=== PATIENT | female | born 1990 | race Caucasian/White ===

== ENCOUNTER 2021-11-25 16:43 | Inpatient (IN) ==
[2021-11-25 16:25] LABS: Basophils % 0.1 %; Eosinophils # 0.1 K/mcL (0.0-0.6); Eosinophils % 0.5 %; Hematocrit 40.6 % (35.3-44.9); Hemoglobin 13.7 g/dL (11.5-15.4); Immature Granulocytes % 0.4 % (0-4); Lymphocytes # 1.8 K/mcL (0.6-4.6); Mean Corpuscular HGB Conc 33.7 g/dL (31.6-35.5); Mean Platelet Volume 10.1 fL (9.4-12.4); Monocytes # 0.5 K/mcL (0.0-1.3); Monocytes % 5.1 %; Neutrophils # 7.7 K/mcL (1.6-8.9); Platelet Count 245 K/mcL (140-400); Red Blood Count 4.56 M/mcL (3.82-4.97); Red Cell Distribution Width 13.1 % (11.5-14.5); Segmented Neutrophils % 75.9 %; White Blood Count 10.2 K/mcL (4.3-11.1)
[2021-11-25 16:27] LABS: VBG HCO3 20 mEq/L (21-27); VBG PCO2 32 mmHg (41-51); VBG PH 7.41 pH Units (7.32-7.42); VBG PO2 139 mmHg (25-50)
[~2021-11-25 16:43] MED LIST: *HR* Labetalol 20 MG/4 ML SYRINGE IVP ONE; *HR* Labetalol 20 MG/4 ML SYRINGE IVP PRN; Calcium Gluconate 1,000 MG/10 ML VIAL IVP PRN; Magnesium Sulf 20 gm/SW 500mL 20 GM/500 ML IV.SOLN IVC SCH; Magnesium Sulf 20 gm/SW 500mL 4 GM/100 ML BAG IV ONE; Ringers Solution, Lactated 1,000 ML ONE
[2021-11-25] MEDS ORDERED: Isovue-370 500 ML BOTTLE IVP ONE (16:59)
[2021-11-25 17:04] LABS: Alanine Aminotransferase 12 Units/L (7-52); Aspartate Amino Transferase 15 Units/L (13-39); BUN/Creatinine Ratio 9 (6-26); Blood Urea Nitrogen 5 mg/dL (6-20); Calcium 9.1 mg/dL (8.6-10.3); Carbon Dioxide 19 mEq/L (23-29); Chloride 106 mEq/L (98-107); Glucose 71 mg/dL (70-105); Lactate Dehydrogenase 161 Units/L (140-271); Magnesium 1.8 mg/dL (1.6-2.6); Osmolality,Calculated 278 (280-300); Phosphorous 4.1 mg/dL (2.7-4.5); Potassium 3.7 mEq/L (3.5-5.1); Sodium 136 mEq/L (136-145); Uric Acid 4.2 mg/dL (2.3-7.6); eGFR For African Americans > 60 (> 60); eGFR For Non-African Americans > 60 (> 60)
[2021-11-25 17:45] LABS: Prothrombin Time 11.1 Seconds (9.4-12.1)
[2021-11-25 17:46] LABS: Activated Partial Thrombo Time 29.8 Seconds (26.0-36.0)
[2021-11-25 17:50] LABS: Creatinine,Urine 31 mg/dL; Protein/Creatinine Ratio,Urine 0.16 mg/mg (0.00-0.20)
[2021-11-25] MEDS ORDERED: CeFAZolin Syr 3,000MG/30 ML 3,000 MG/30 ML SYRINGE IVPB ONE (17:58)
[2021-11-25] MEDS ORDERED: Metoclopramide 10 MG/2 ML VIAL IVP ONE (17:58)
[2021-11-25] MEDS ORDERED: Famotidine 20 MG/2 ML VIAL IVP ONE (17:58)
[2021-11-25] MEDS ORDERED: Oxytocin 30 UNIT/503 ML BAG IVC SCH ×2 (18:00→22:41)
[2021-11-25] MEDS ORDERED: Ringers Solution, Lactated 1,000 ML IVC SCH ×2 (18:00→22:41)
[2021-11-25] MEDS ORDERED: *HR* FentaNYL (PF) 100 MCG/2 ML VIAL ONE (18:49)
[2021-11-25] MEDS ORDERED: Ondansetron 4 MG/2 ML VIAL ONE (18:49)
[2021-11-25] MEDS ORDERED: *HR* Morphine Sulfate/PF 10 MG/10 ML AMPUL ONE (18:49)
[2021-11-25 18:53] LABS: Amphetamine Screen,Urine Negative ng/mL (Cutoff=1000); Barbiturate Screen,Urine Negative ng/mL (Cutoff=200); Benzodiazepines Screen,Urine Negative ng/mL (Cutoff=200); Cannabinoid Screen,Urine Negative ng/mL (Cutoff = 50); Cocaine Screen,Urine Negative ng/mL (Cutoff= 300); Opiate Screen,Urine Negative ng/mL (Cutoff=300); Phencyclidine Screen,Urine Negative ng/mL (Cutoff=25)
[2021-11-25 18:56] LABS: Adenovirus Not Detected (Not Detect); Bordetella Pertussis Not Detected (Not Detect); Chlamydophila pneumoniae Not Detected (Not Detect); Coronavirus 229E Not Detected (Not Detect); Coronavirus HKU1 Not Detected (Not Detect); Coronavirus NL63 Not Detected (Not Detect); Coronavirus OC43 Not Detected (Not Detect); Human Metapneumovirus Not Detected (Not Detect); Human Rhinovirus/Enterovirus Not Detected (Not Detect); Influenza A Subtype 2009 H1 Not Detected (Not Detect); Influenza B Not Detected (Not Detect); Mycoplasma pneumoniae Not Detected (Not Detect); Parainfluenza Virus 1 Not Detected (Not Detect); Parainfluenza Virus 2 Not Detected (Not Detect); Parainfluenza Virus 3 Not Detected (Not Detect); Parainfluenza Virus 4 Not Detected (Not Detect); Respiratory Syncytial Virus Not Detected (Not Detect); SARS-CoV-2 Not Detected (Not Detect)
[2021-11-25] MEDS ORDERED: Acetaminophen IV 1,000 MG/100 ML BAG IVPB ONE (20:23)
[2021-11-25] MEDS ORDERED: EPHEDrine 50 MG/ML VIAL ONE (20:36)
[2021-11-25] MEDS ORDERED: Ketorolac 30 MG/ML VIAL ONE (21:04)
[2021-11-25] MEDS ORDERED: Metoclopramide 10 MG/2 ML VIAL IVP PRN (22:41)
[2021-11-25] MEDS ORDERED: *HR* OxyCODONE Immed Rel 5 MG TABLET PO PRN (22:41)
[2021-11-25] MEDS ORDERED: Simethicone 80 MG TAB.CHEW PO PRN (22:41)
[2021-11-25] MEDS ORDERED: Ondansetron 4 MG/2 ML VIAL IVP PRN (22:41)
[2021-11-26] MEDS: Acetaminophen 325 MG TABLET PO SCH ×4 (02:10→20:14)
[2021-11-26] MEDS: Ibuprofen 600 MG TABLET PO SCH ×5 (02:11→20:14)
[2021-11-26 04:38] LABS: Basophils % 0.1 %; Eosinophils % 0.2 %; Hematocrit 32.1 % (35.3-44.9); Immature Granulocytes % 0.4 % (0-4); Lymphocytes % 14.7 %; Mean Corpuscular Hemoglobin 30.3 pg (28.0-33.3); Mean Corpuscular Volume 91.7 fL (83.0-100.0); Mean Platelet Volume 10.1 fL (9.4-12.4); Monocytes # 0.7 K/mcL (0.0-1.3); Monocytes % 5.3 %; Platelet Count 205 K/mcL (140-400); Red Cell Distribution Width 13.2 % (11.5-14.5); Segmented Neutrophils % 79.3 %; White Blood Count 13.9 K/mcL (4.3-11.1)
[2021-11-26 04:48] LABS: Hemoglobin 10.6 g/dL (11.5-15.4)
[2021-11-26] MEDS: *HR* Enoxaparin 60 MG/0.6 ML SYRINGE SQ SCH ×2 (08:08→20:14)
[2021-11-26] MEDS: Prenatal Vit/FA 1 EACH TABLET PO SCH (08:08)
[2021-11-26] MEDS: Acyclovir 200 MG CAPSULE PO SCH ×2 (08:30→20:14)
[2021-11-26] MEDS: predniSONE 20 MG TABLET PO SCH ×2 (08:30→17:48)
[2021-11-26] MEDS: Lanolin 7 G OINT...G. TP PRN (17:48)
[2021-11-27] MEDS: Ibuprofen 600 MG TABLET PO SCH ×3 (02:09→13:03)
[2021-11-27] MEDS: Acetaminophen 325 MG TABLET PO SCH ×3 (02:09→08:56)
[2021-11-27 07:39] VITALS: BP 119/79; PULSE 81; TEMP 98; O2SAT 96
[2021-11-27] MEDS: Acyclovir 200 MG CAPSULE PO SCH (08:55)
[2021-11-27] MEDS: Prenatal Vit/FA 1 EACH TABLET PO SCH (08:56)
[2021-11-27] MEDS: predniSONE 20 MG TABLET PO SCH (08:56)
[2021-11-27] MEDS: *HR* Enoxaparin 60 MG/0.6 ML SYRINGE SQ SCH (08:58)
[2021-11-27] MEDS: Lanolin 7 G OINT...G. TP PRN (13:04)
== END 2021-11-27 14:01 | disposition home or self-care (01) | DRG 787 ==
LOC: 1NENULAB → 1NENUOBS 23:55
PROVIDERS: ADMIT Obstetrics & Gynecology; ATTEND Obstetrics & Gynecology